=== PATIENT | male | born 2005 | race Caucasian/White ===

== ENCOUNTER 2025-01-22 21:24 | Inpatient (IN) ==
--- NOTE | 2025-01-22 21:44 | Emergency Department Note ---
History of Present Illness General Chief complaint: Seizure Stated complaint: SEIZURE, FALL, HIT HEAD Time Seen by Provider: 01/22/25 21:34 History of Present Illness This is a 19-year-old male presenting to the emergency department for evaluation of a seizure episode. The patient has a history of epilepsy and is not taking his Lamictal. His last seizure was about a month ago. 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 He went minimally responsive according to witnesses, and ultimately fell striking the left side of his head off the ground. Patient was evaluated by EMS and brought to the ER for evaluation. He was postictal. Patient is recovering now that he has arrived to the ER and does not recall the events that occurred prior to his hospital visit. He rates his current discomfort a 5/10 in his head. No pain in his neck, chest, abdomen, or extremities. Home Medications Medication Instructions Recorded Confirmed Type No Known Home Medications 01/23/25 01/23/25 History Allergies Allergy/AdvReac Type Severity Reaction Status Date / Time No Known Allergies Allergy Mild Verified 12/19/24 08:40 Past Med/Surg History Problem List (Updated 01/23/25 @ 06:13 by Enrique Willis PA-C) Cannabis use disorder (Acute) Head injury (Acute) Seizure (Acute) Epilepsy (Acute) ADHD Medical History Alcohol abuse Tetrahydrocannabinol (THC) dependence Tetrahydrocannabinol (THC) use disorder, mild, abuse No significant past medical history Surgical History No significant past surgical history Family History Mother No problems noted. Father No problems noted. Social History Smoking Status: Never smoker Tobacco Type: E-cigarettes / Vaping Second Hand Exposure: No; Do You Dip or Chew Tobacco: No; Tobacco Cessation Education Requested by Patient: No Hx Alcohol Use: Yes Alcohol type: hard liquor Hx Substance Use: No Preferred Language: Barbadian Communication Ability: Effective Visual Impairment: No Limitations Hearing Ability: Normal Audio/Visual Manager Required: No Beliefs That Will Affect Care: None marital status: Single Current Living Situation: Alone Current Living Situation Comment: lives with mom and sister current occupational status: employed and student Other Information That Helps Us Care for You: No Feels Safe at Home: Yes Safety Concerns: Feels Safe At This Time Childhood Exposure to Second-Hand Smoke: No Diet: regular caffeine: Yes Dental Care, Regularly: Yes Physical Activity Frequency: Daily Seatbelt Use: always Sunscreen Use: Yes Assistive Devices: None Review of Systems A total of 10 systems reviewed and were otherwise negative Physical Exam Vital Signs Vital Signs - 24 hr 01/22/25 21:41 01/22/25 21:41 01/22/25 21:42 Temperature 36.8 C Temperature Source Oral Pulse Rate 92 H 93 H Pulse Rate [Apical] Pulse Rate from SpO2 Sensor Pulse Rhythm Regular Pulse Strength Normal Respiratory Rate 20 Respiratory Effort / Characteristics Non-Labored Spontaneous Respiratory Depth Normal Respiratory Pattern Regular Blood Pressure Blood Pressure [Left Arm] Blood Pressure Mean Blood Pressure Mean [Left Arm] Blood Pressure Position [Left Arm] Pulse Oximetry 98 98 Oxygen Delivery Method Room Air Room Air Oxygen Flow Rate Sepsis Recent Fever Within 48 Hours No Sepsis New/Unexplained Change in Mental Status No Sepsis Action Taken by Nursing No Action Required Oxygen Flow Rate - Titration Pulse Oximetry Post Tiitration 01/22/25 21:42 01/22/25 21:43 01/22/25 22:23 Temperature Temperature Source Pulse Rate 92 H Pulse Rate [Apical] Pulse Rate from SpO2 Sensor Pulse Rhythm Pulse Strength Respiratory Rate 12 Respiratory Effort / Characteristics Respiratory Depth Respiratory Pattern Blood Pressure 133/78 149/70 H Blood Pressure [Left Arm] Blood Pressure Mean 96 85 Blood Pressure Mean [Left Arm] Blood Pressure Position [Left Arm] Pulse Oximetry Oxygen Delivery Method Oxygen Flow Rate Sepsis Recent Fever Within 48 Hours Sepsis New/Unexplained Change in Mental Status Sepsis Action Taken by Nursing Oxygen Flow Rate - Titration Pulse Oximetry Post Tiitration 01/22/25 22:30 01/22/25 23:00 01/22/25 23:30 Temperature Temperature Source Pulse Rate 98 H 93 H Pulse Rate [Apical] 97 H Pulse Rate from SpO2 Sensor 95 H Pulse Rhythm Pulse Strength Respiratory Rate 24 23 21 Respiratory Effort / Characteristics Non-Labored Spontaneous Respiratory Depth Respiratory Pattern Regular Blood Pressure 133/77 Blood Pressure [Left Arm] 148/83 H Blood Pressure Mean 92 Blood Pressure Mean [Left Arm] 104 Blood Pressure Position [Left Arm] Lying Pulse Oximetry 90 98 100 Oxygen Delivery Method Room Air Room Air Oxygen Flow Rate Sepsis Recent Fever Within 48 Hours Sepsis New/Unexplained Change in Mental Status Sepsis Action Taken by Nursing Oxygen Flow Rate - Titration Pulse Oximetry Post Tiitration 01/23/25 00:12 01/23/25 00:30 01/23/25 01:00 Temperature Temperature Source Pulse Rate 107 H 86 112 H Pulse Rate [Apical] Pulse Rate from SpO2 Sensor 104 H 86 104 H Pulse Rhythm Pulse Strength Respiratory Rate 18 25 H 20 Respiratory Effort / Characteristics Respiratory Depth Respiratory Pattern Blood Pressure 118/68 125/86 141/88 H Blood Pressure [Left Arm] Blood Pressure Mean 84 99 105 Blood Pressure Mean [Left Arm] Blood Pressure Position [Left Arm] Pulse Oximetry 96 97 90 Oxygen Delivery Method Oxygen Flow Rate Sepsis Recent Fever Within 48 Hours Sepsis New/Unexplained Change in Mental Status Sepsis Action Taken by Nursing Oxygen Flow Rate - Titration Pulse Oximetry Post Tiitration 01/23/25 01:38 01/23/25 02:37 01/23/25 03:12 Temperature Temperature Source Pulse Rate 92 H 103 H Pulse Rate [Apical] Pulse Rate from SpO2 Sensor 103 H Pulse Rhythm Pulse Strength Respiratory Rate 15 Respiratory Effort / Characteristics Respiratory Depth Respiratory Pattern Blood Pressure 121/63 Blood Pressure [Left Arm] Blood Pressure Mean 82 Blood Pressure Mean [Left Arm] Blood Pressure Position [Left Arm] Pulse Oximetry 81 L 94 Oxygen Delivery Method Room Air Nasal Cannula Room Air Oxygen Flow Rate 0 Sepsis Recent Fever Within 48 Hours Sepsis New/Unexplained Change in Mental Status Sepsis Action Taken by Nursing Oxygen Flow Rate - Titration 2 Pulse Oximetry Post Tiitration 95 VITALS: Vitals are noted on the nurse's note and reviewed by myself. Vital signs stable. GENERAL: Well-developed, well-nourished, male, who is in minimally confused but overall cooperative HEAD: There is a roughly 4 cm diameter scalp hematoma along the left posterior scalp EARS: External ear normal. External auditory canals clear, tympanic membranes pearly moreno without erythema or effusion bilaterally. EYES: Pupils equal round and reactive to light and accommodation. Conjunctivae without injection, sclerae without icterus. Extraocular movements intact. NOSE: Patent, turbinates without inflammation or discharge. MOUTH: Mucous membranes moist. Pharynx without erythema, blood, or exudate. Uvula midline. Airway patent. NECK: Supple without nuchal rigidity. No lymphadenopathy. No thyromegaly. Cervical spine is nontender. HEART: Regular rate and rhythm without murmurs gallops or rubs. LUNGS: Clear to auscultation bilaterally without wheezes, rales or rhonchi. No retractions or accessory muscle use. ABDOMEN: Positive normal bowel sounds x 4. Soft, nontender, without masses or organomegaly. No guarding or rebound tenderness. MUSCULOSKELETAL: No muscle atrophy, erythema, or edema noted. Full range of motion in all extremities. No tenderness to palpation. NEURO: Patient was alert and oriented to person place and time. CN II through XII grossly intact. No focal neurological deficits. GCS 15. SKIN: The skin was without rashes, erythema, edema, or bruising. Capillary refill less than 2 seconds. Course Administered Medications Discontinued Medications Sodium Chloride (Nss) 1,000 mls @ 999 mls/hr IV .Q1H1M ONE Stop: 01/22/25 22:40 Last Infusion: 01/23/25 01:26 Dose: Infused Documented By: Admin: 01/22/25 23:12 Dose: 999 mls/hr Documented By: LIDIA Lactated Ringer's (Lr) 1,000 mls @ 999 mls/hr IV .Q1H1M STA Stop: 01/23/25 05:19 Last Admin: 01/23/25 04:46 Dose: 999 mls/hr Documented By: LIDIA Levetiracetam (Levetiracetam 500 Mg/5 Ml Vial) 1,400 mg 20 mg/kg (1400 mg) IV NOW STA Stop: 01/22/25 22:35 Last Admin: 01/22/25 22:39 Dose: 1,400 mg Documented By: mabel Lorazepam (Lorazepam 1 Mg/1 Ml Syr Ed Inj Use) 1 mg IV ONE STA Stop: 01/22/25 21:41 Last Admin: 01/22/25 21:49 Dose: 1 mg Documented By: mabel Lorazepam (Lorazepam 1 Mg/1 Ml Syr Ed Inj Use) 2 mg IV ONE STA Stop: 01/22/25 22:18 Last Admin: 01/22/25 22:37 Dose: 2 mg Documented By: mabel Critical Care Time I have personally spent greater than 30 minutes of critical care time in the direct management of this patient. This includes bedside care, interpretation of diagnostic studies, and testing, discussion with consultants, patient, and family members, and other required patient management activities. This 30 minutes is in excess of all separately billable procedures. Medical Decision Making Differential Diagnosis Differential diagnosis: Etiologies such as vasovagal event, infection, anemia, hypoglycemia, hypovolemia, electrolyte abnormalities, dysrhythmias, cardiac ischemia, cardiac tamponade, valvular heart disease, structural heart disease, seizure, vascular stenosis/dissection, pulmonary embolism, intracerebral event, toxicological process, neurologic event, as well as others were entertained. Laboratory Data 01/22/25 21:37 01/23/25 04:17 Lab Results 01/22/25 01/23/25 Range/Units 21:37 03:13 WBC 17.32 H (4.8-10.8) K/ul RBC 5.30 (4.70-6.10) M/uL Hgb 16.6 (14.0-18.0) g/dL Hct 48.4 (42.0-52.0) % MCV 91.3 (80.0-100.0) fL MCH 31.3 (25.0-34.0) pg MCHC 34.3 (32.0-36.0) g/dL RDW Std Deviation 39.5 (36.4-46.3) fL RDW Coeff of Estrella 11.7 (11.5-14.5) % Plt Count 288 (130-400) K/uL MPV 11.0 (9.4-12.4) fL Immature Gran % (Auto) 2.1 % Neut % (Auto) 67.1 % Lymph % (Auto) 22.0 % [place] % (Auto) 5.8 % Eos % (Auto) 2.3 % Baso % (Auto) 0.7 % Neut # (Auto) 11.62 H (1.40-6.50) K/uL Lymph # (Auto) 3.81 H (1.20-3.40) K/uL [place] # (Auto) 1.01 H (0.11-0.59) K/uL Eos # (Auto) 0.39 (0.00-0.50) K/uL Baso # (Auto) 0.12 (0.00-0.20) K/uL Immature Gran # (Auto) 0.37 H (0.01-0.20) K/uL Sodium 137 (136-145) mmol/L Potassium 3.8 (3.5-5.1) mmol/L Chloride 101 (98-107) mmol/L Carbon Dioxide 11 L (21-32) mmol/L Anion Gap 25 H (3-11) BUN 14 (6-23) mg/dl Creatinine 1.31 (0.6-1.4) mg/dl Est Cr Clr Drug Dosing 83.4 ml/min eGFR 79.42 BUN/Creatinine Ratio 10.7 (10-20) Glucose 162 H (70-99(Fasting)) mg/dl Calcium 9.9 (8.6-10.3) mg/dl Magnesium 2.6 H (1.7-2.4) mg/dl Total Bilirubin 0.4 (0.2-1.0) mg/dl AST 23 (13-39) U/L ALT 18 (7-52) U/L Alkaline Phosphatase 95 (34-104) U/L Total Creatine Kinase 187 (30-223) U/L Total Protein 8.9 H (6.0-8.3) gm/dl Albumin 5.6 H (3.4-5.0) gm/dl Globulin 3.3 (2.5-4.0) gm/dl Albumin/Globulin Ratio 1.7 (0.9-2) Urine Color Yellow Urine Appearance Cloudy A (Clear) Urine pH 5.5 (4.5-7.5) Ur Specific Post 1.011 (1.000-1.030) Urine Protein Trace H (Negative) Urine Glucose (UA) Negative (Negative) Urine Ketones Negative (Negative) Urine Blood Trace H (Negative) Urine Nitrite Negative (Negative) Urine Bilirubin Negative (Negative) Urine Urobilinogen Negative (Negative) Ur Leukocyte Esterase Negative (Negative) Urine WBC (Auto) 0-5 (0-5) /hpf Urine RBC (Auto) 0-2 (0-2) /hpf U Hyaline Cast (Auto) 6-10 H (0-2) /lpf U Epithel Cells (Auto) 0-2 (0-2) /hpf Urine Bacteria (Auto) None Seen (None Seen) Urine Mucus Present A (None Prsent) Urine Comment Urine Opiates Screen Neg (Neg) Ur Methadone, Qual Neg (Neg) Urine Fentanyl Screen Neg (Neg) Urine Barbiturates Neg (Neg) Ur Phencyclidine (PCP) Neg (Neg) U Amphetamin/Meth Scrn Neg (Neg) MDMA (Ecstasy) Screen Neg (Neg) U Benzodiazepines Scrn Neg (Neg) Ur Cocaine Metabolite Neg (Neg) U Marijuana (THC) Screen Pos H (Neg) Ethyl Alcohol mg/dL < 10.0 (<10.0) mg/dl Lyme Disease Screen Negative (Negative) Imaging Data Radiologist's Impression: Head CT 01/22/25 21:41 Exam(s): CT HEAD Without Contrast EXAM: CT Head Without Intravenous Contrast CLINICAL HISTORY: Reason for exam: Seizure, fall, head injury. TECHNIQUE: Axial computed tomography images of the head/brain without intravenous contrast. CTDI is 37.61 mGy and DLP is 1094.1 mGy-cm. Automated exposure control was utilized for the study. A dose lowering technique was utilized adhering to the principles of ALARA. COMPARISON: 11/09/2024 FINDINGS: Brain: Unremarkable. No hemorrhage. No significant white matter disease. No edema. Ventricles: Unremarkable. No ventriculomegaly. Bones/joints: Unremarkable. No acute fracture. Soft tissues: Unremarkable. Sinuses: Unremarkable as visualized. No acute sinusitis. Mastoid air cells: Unremarkable as visualized. No mastoid effusion. IMPRESSION: Head CT negative for acute intracranial abnormality Electronically signed by: Geovany Good MD 01/22/25 23:33 PM [facility] Narrative Physical exam and history were performed. Nursing notes, EMR, and Medication List were personally reviewed. No social concerns were identified as barriers to patients care. History was provided by the Patient and EMS. Ultimately patient's mother did arrive at bedside and did provide additional history. Patient appears to have history of seizures. He seems to have had a spontaneous seizure today. He does have injury to his left side scalp and does seem somewhat postictal. He does not recall all of the events and seems to have some amnesia to what occurred this evening. IV access was established and labs were obtained. Patient was cared for under aspiration and seizure precautions. He was given IV fluids and an initial dose of 1 mg IV Ativan. Patient was sent to CT scan for imaging of his head. Shortly after my initial evaluation, I was asked to return to the room as the patient was actively seizing. On my return to the room patient is having a true seizure. He is quite diaphoretic and nursing is helping him on his side and suctioning his mouth. Patient was given additional 2 mg IV Ativan which did abort the seizure. Case was discussed with my attending. Patient's blood work is as above and was reviewed. He does have an elevated white count of 17,000. He does not have significant anemia or gross electrolyte imbalance. Glucose is 100. Transaminases not diagnostic. CK normal. Urine without evidence of infection. Drug abuse is positive for marijuana. CT of the head was independently reviewed by myself and radiology showing no acute process. Patient's mother did arrive at bedside and was able to provide additional history. Evidently the patient has an upcoming appointment with [facility] on 01/27/2025 for inpatient epilepsy evaluation. According to the patient's mother and by his medication refill history he is not taking any of his chronic meds. Patient was given IV Keppra here in the ER. Patient was reevaluated multiple times and remains asleep and comfortable. I did discuss care options with mother at bedside, escalation of care was considered, and felt to be necessary. Patient case was discussed with the on- call [facility] hospitalist team, who requested that I reach out to the patient's neurologist for further advice of care. I did speak with [facility] neurologist, Dr. Carballo, and recommendation was to continue Keppra. If the patient is able and stable for discharge, they would like him to keep his appointment on 01/27/2025. They would also like to continue this as an outpatient. He does not appear to need acute transfer. Hospitalist team was updated on these recommendations. Please see their dictation for further patient course, plan, and disposition. The chart was completed utilizing [employer] Speech Voice Recognition Software. Grammatical errors, random word insertions, pronoun errors, and incomplete sentences are an occasional consequence of this system due to software limitations, ambient noise, and hardware issues. Any formal questions or concerns about the content, text, or information contained within the body of this dictation should be directly addressed to the provider for clarification. Impression & Plan Seizure, Epilepsy, Head injury, Cannabis use disorder Discharge Plan Visit Data Chief Complaint: Seizure Stated Complaint: SEIZURE, FALL, HIT HEAD ED Provider: Irene Briones ED Midlevel Provider: Enrique Willis Discharge Problem: Seizure, Epilepsy, Head injury, Cannabis use disorder Patient Disposition: Admitted As Inpatient Condition: Fair Discharge Instructions Interventions: ED Discharge Assessment Last Done: 01/23/25 05:09
[2025-01-22] MEDS: LORazepam 1 MG/1 ML SYR ED Inj Use IV STA ×2 (21:49→22:37)
[2025-01-22 21:56] LABS: Hematocrit (blood only) 48.4 % (42.0-52.0); Hemoglobin 16.6 g/dL (14.0-18.0); Immature Granulocytes # (auto) 0.37 K/uL (0.01-0.20); Immature Granulocytes % (auto) 2.1 %; Mean Corpuscular Hemoglobin 31.3 pg (25.0-34.0); Mean Corpuscular Volume 91.3 fL (80.0-100.0); Platelet Count 288 K/uL (130-400); RDW Standard Deviation 39.5 fL (36.4-46.3); Red Blood Count 5.30 M/uL (4.70-6.10); White Blood Count 17.32 K/ul (4.8-10.8)
[2025-01-22 22:05] LABS: Albumin Level 5.6 gm/dl (3.4-5.0); Anion Gap 25.0 (3-11); Bilirubin,Total 0.4 mg/dl (0.2-1.0); Calcium 9.9 mg/dl (8.6-10.3); Carbon Dioxide 11.0 mmol/L (21-32); Chloride 101.0 mmol/L (98-107); Magnesium 2.6 mg/dl (1.7-2.4); Potassium 3.8 mmol/L (3.5-5.1); Sodium 137.0 mmol/L (136-145)
[2025-01-22 22:12] LABS: Alanine Aminotransferase 18.0 U/L (7-52); Albumin Globulin Ratio 1.7 (0.9-2); Alkaline Phosphatase 95.0 U/L (34-104); Blood Urea Nitrogen 14.0 mg/dl (6-23); Creatinine Clr Calc Pharmacy 83.4 ml/min; Globulin 3.3 gm/dl (2.5-4.0); Glucose 162.0 mg/dl (70-99(Fasting)); Total Protein 8.9 gm/dl (6.0-8.3)
[2025-01-22] MEDS ORDERED: LORazepam 1 MG/1 ML SYR ED Inj Use IV PRN (22:23)
[2025-01-22 22:46] LABS: Creatine Kinase 187.0 U/L (30-223)
[2025-01-22] MEDS: SODIUM CHLORIDE 0.9% 1,000 ML IV ONE (23:12)
--- NOTE | 2025-01-22 23:33 | CT Scan Report ---
Exam(s): CT HEAD Without Contrast EXAM: CT Head Without Intravenous Contrast CLINICAL HISTORY: Reason for exam: Seizure, fall, head injury. TECHNIQUE: Axial computed tomography images of the head/brain without intravenous contrast. CTDI is 37.61 mGy and DLP is 1094.1 mGy-cm. Automated exposure control was utilized for the study. A dose lowering technique was utilized adhering to the principles of ALARA. COMPARISON: 11/09/2024 FINDINGS: Brain: Unremarkable. No hemorrhage. No significant white matter disease. No edema. Ventricles: Unremarkable. No ventriculomegaly. Bones/joints: Unremarkable. No acute fracture. Soft tissues: Unremarkable. Sinuses: Unremarkable as visualized. No acute sinusitis. Mastoid air cells: Unremarkable as visualized. No mastoid effusion. IMPRESSION: Head CT negative for acute intracranial abnormality Electronically signed by: Geovany Good MD 01/22/25 23:33 PM
--- NOTE | 2025-01-23 03:36 | History & Physical Report ---
Date of Service January 23, 2025 Assessment & Plan (1) Seizure: Plan 19-year-old male PMHx ADHD, alcohol abuse, THC dependence, and epilepsy presenting for seizure the day of arrival. Evaluation of this leukocytosis 17.32, anion gap 25. His CK is normal, alcohol negative, Lyme negative. Head CT negative. Admission for seizures. #Seizure H/o seizures, epileptic in nature as identified during [facility] admission 10/2024. EEG at that time generalized epileptiform pattern. Has f/u appointment at epilepsy center in [place] 01/27/2025. Was to be on lamotrigine, has not been taking as he is not compliant with medications. Received levetiracetam in ED. Admission for seizures. - CBC leukocytosis 17.32; CMP anion gap 25; CK 187; lactate, VBG pending - BMP q4hr (specific attention AG) - UDS pending, ETOH negative - CT head no acute findings - Seizure, fall precautions - IVF LR 1L bolus then @ 125 mL/hr - Levetiracetam 500 mg BID - start - Lorazepam IV for active seizures - MRI brain pending - EEG pending - Neuro consulted - appreciate input + recs #ADHD- No active medications for such #THC Dependence- Pending UDS #H/o alcohol abuse- Alcohol negative Dispo: Admit, PCU VTE prophylaxis: SCDs This document was dictated utilizing [employer]. Please excuse any grammatical errors that may be secondary to use of this software. Admission and Anticipated Discharge Date Admission Date: 01/23/2025 History of Present Illness Chief Complaint: Seizure Primary Care Provider: ADAM Subramanian 19-year-old male PMHx ADHD, alcohol abuse, THC dependence, and epilepsy presenting for seizure the day of arrival. Mother provides the history as patient is sleeping and does not verbally communicate with me during the interaction. Mother states that the pt had a seizure while at work the night of arrival. Reports that pt was dx with epilepsy in October of 2024 after similar episode. He had been prescribed anti-epileptic medications at that time, but by week 3 felt that the meds were making him sick and he was waking up with night sweats so he discontinued the medications on his own. This was the first seizure since doing so. Mother states that the pt does smoke marijuana every week, reports that the last time he smoked was ~ 2 days ago which she did ask him while he was awake in the ED. She is unsure of his drinking habits, does not believe that he is drinking at all, and does not believe that the patient partakes in other recreational drugs. He is sleeping during exam, does not wake to answer my questions. He did wake for his mother briefly and knew that he was at the hospital for a seizure, then he fell back asleep. History is limited. ED evaluation reveals CBC with leukocytosis 17.32, stable H&H; CMP CO2 11, AG 25, glucose 162, protein 8.9, albumin 5.6; magnesium 2.6, calcium 9.9; total CK1 87; alcohol negative; Lyme negative; head CT negative.; Provided with 1L NSS, lorazepam 2 mg IV x 2, and levetiracetam 1400 mg IV in ED. Please see Dr. Castle attestation for adjustments/additions to treatment plan. Allergies Allergy/AdvReac Type Severity Reaction Status Date / Time No Known Allergies Allergy Mild Verified 12/19/24 08:40 Home Medications Medication Instructions Recorded Confirmed Type No Known Home Medications 01/23/25 01/23/25 History Past Med/Surg History Problem List (Updated 01/23/25 @ 06:13 by Enrique Willis PA-C) Cannabis use disorder (Acute) Head injury (Acute) Seizure (Acute) Epilepsy (Acute) ADHD Medical History Alcohol abuse Tetrahydrocannabinol (THC) dependence Tetrahydrocannabinol (THC) use disorder, mild, abuse No significant past medical history Surgical History No significant past surgical history Family History Mother No problems noted. Father No problems noted. Social History Smoking Status: Never smoker Tobacco Type: E-cigarettes / Vaping Second Hand Exposure: No; Do You Dip or Chew Tobacco: No; Tobacco Cessation Education Requested by Patient: No Hx Alcohol Use: Yes Alcohol type: hard liquor Hx Substance Use: No Preferred Language: Kiswahili Communication Ability: Effective Visual Impairment: No Limitations Hearing Ability: Normal Manager Of Program Required: No Beliefs That Will Affect Care: None marital status: Single Current Living Situation: Alone Current Living Situation Comment: lives with mom and sister current occupational status: employed and student Other Information That Helps Us Care for You: No Feels Safe at Home: Yes Safety Concerns: Feels Safe At This Time Childhood Exposure to Second-Hand Smoke: No Diet: regular caffeine: Yes Dental Care, Regularly: Yes Physical Activity Frequency: Daily Seatbelt Use: always Sunscreen Use: Yes Assistive Devices: None Review of Systems Review of Systems: All systems reviewed & are unremarkable except as noted in Subjective Physical Exam Physical Exam: General: No acute distress Skin: Warm and dry, abrasions L side face Head: Normocephalic, atraumatic Eyes: PERRL, conjunctivae clear, sclera non-icteric ENT: External ear and ear canal without swelling; nose atraumatic; good dentition, tongue normal appearance, pharynx normal Neck: Supple, no LAD Cardio: RRR, no M/G/R, S1 and S2 normal Resp: No respiratory distress, Lungs CTA in all lobes bilaterally, no wheezes, rales, or rhonchi Abdomen: Soft, symmetric, nontender; No masses or hepatosplenomegaly; Bowel sounds normoactive MSK: No deformities; pulses palpable and equal; no edema. Neuro: Sensation intact bilaterally - moves my stethoscope off his chest and turns over in bed Psych: Awake to touch, opens eyes, goes back to sleep. Mother present in room at time of visit. Results & Data Results & Data Vital Signs (Past 12 Hours) Vital Signs Temp Pulse Pulse Resp BP BP Pulse Ox 01/23/25 03:12 103 H 15 121/63 94 01/23/25 02:37 81 L 01/23/25 01:38 92 H 01/23/25 01:00 112 H 20 141/88 H 90 01/23/25 00:30 86 25 H 125/86 97 01/23/25 00:12 107 H 18 118/68 96 01/22/25 23:30 93 H 21 133/77 100 01/22/25 23:00 97 H 23 148/83 H 98 01/22/25 22:30 98 H 24 90 01/22/25 22:23 149/70 H 01/22/25 21:43 133/78 01/22/25 21:42 92 H 12 01/22/25 21:42 93 H 01/22/25 21:41 98 01/22/25 21:41 36.8 C 92 H 20 98 O2 Del Method O2 Flow Rate 01/23/25 03:12 Room Air 01/23/25 02:37 Room Air, Nasal Cannula 0 01/23/25 01:38 01/23/25 01:00 01/23/25 00:30 01/23/25 00:12 01/22/25 23:30 Room Air 01/22/25 23:00 Room Air 01/22/25 22:30 01/22/25 22:23 01/22/25 21:43 01/22/25 21:42 01/22/25 21:42 01/22/25 21:41 Room Air 01/22/25 21:41 Room Air Laboratory Results 01/22/25 21:37 WBC 17.32 H RBC 5.30 Hgb 16.6 Hct 48.4 MCV 91.3 MCH 31.3 MCHC 34.3 RDW Std Deviation 39.5 RDW Coeff of Estrella 11.7 Plt Count 288 MPV 11.0 Immature Gran % (Auto) 2.1 Neut % (Auto) 67.1 Lymph % (Auto) 22.0 [place] % (Auto) 5.8 Eos % (Auto) 2.3 Baso % (Auto) 0.7 Neut # (Auto) 11.62 H Lymph # (Auto) 3.81 H [place] # (Auto) 1.01 H Eos # (Auto) 0.39 Baso # (Auto) 0.12 Immature Gran # (Auto) 0.37 H Sodium 137 Potassium 3.8 Chloride 101 Carbon Dioxide 11 L Anion Gap 25 H BUN 14 Creatinine 1.31 Est Cr Clr Drug Dosing 83.4 eGFR 79.42 BUN/Creatinine Ratio 10.7 Glucose 162 H Calcium 9.9 Magnesium 2.6 H Total Bilirubin 0.4 AST 23 ALT 18 Alkaline Phosphatase 95 Total Creatine Kinase 187 Total Protein 8.9 H Albumin 5.6 H Globulin 3.3 Albumin/Globulin Ratio 1.7 Ethyl Alcohol mg/dL < 10.0 Lyme Disease Screen Negative Diagnostic Findings Head CT 01/22/25 21:41 Exam(s): CT HEAD Without Contrast EXAM: CT Head Without Intravenous Contrast CLINICAL HISTORY: Reason for exam: Seizure, fall, head injury. TECHNIQUE: Axial computed tomography images of the head/brain without intravenous contrast. CTDI is 37.61 mGy and DLP is 1094.1 mGy-cm. Automated exposure control was utilized for the study. A dose lowering technique was utilized adhering to the principles of ALARA. COMPARISON: 11/09/2024 FINDINGS: Brain: Unremarkable. No hemorrhage. No significant white matter disease. No edema. Ventricles: Unremarkable. No ventriculomegaly. Bones/joints: Unremarkable. No acute fracture. Soft tissues: Unremarkable. Sinuses: Unremarkable as visualized. No acute sinusitis. Mastoid air cells: Unremarkable as visualized. No mastoid effusion. IMPRESSION: Head CT negative for acute intracranial abnormality Electronically signed by: Geovany Good MD 01/22/25 23:33 PM Medications Administered 1L NSS Lorazepam 2 mg IV Levetiracetam 1400 mg IV Code Status & VTE Plan Code Status Full Supervising Physician Co-Signing Physician Notes Attending addendum: I have physically seen this patient, have supervised the TRACIE's activities, and agree with the H&P unless as otherwise noted. Assessment and Plan: The patient is a 19-year-old male with past medical history including ADHD, alcohol abuse, THC dependence, and epilepsy. He presents to the emergency department with complaint of several seizures that occurred on the day of arrival. Initial evaluation in the emergency department with the following abnormal laboratories: WBC 17.32, hemoglobin 16.6, hematocrit 40.4, glucose 162, creatinine 1.31, anion gap 25. Patient did have 1 seizure while in the emergency department. From the ED he received the following: Lorazepam 1 mg IV, normal saline 1 L bolus, lorazepam 2 mg IV, Keppra [address] scan head without contrast was negative. He was then referred for evaluation [facility]. Seizure disorder- He had a thorough evaluation at [facility] in [place] during admission of 11/07. EEG at that time revealed generalized epileptiform pattern. He has a appointment at the epilepsy center at [place] on 01/27/2025 to establish care there. From [facility] he was prescribed a gradually increasing dosing of lamotrigine, of which he has not been taking and is not compliant with medications. CT head this evening with no acute findings Seizure and fall precautions LR at 125 mL/h Received Keppra 1400 mg IV loading dose in the ED Continue Keppra at 500 mg twice daily Lorazepam IV as needed seizures Order MRI brain Order EEG Consult neurology THC dependence- Urine drug screen negative except for marijuana Counseling History of alcohol abuse- Alcohol level negative ADHD- On no medications PG Care Time/CCT Total # of Minutes Spent Total Time Spent with Patient: Total time spent is greater than 50% in coordination of care (as documented) at patient's floor/unit and/or counseling patient: Coding Level of Care Code 73851 INT INP/OBS CARE MIN Diagnoses Seizure R56.9
[2025-01-23 04:06] LABS: Appearance Urine Cloudy (Clear); Bacteria Urine Automated None Seen (None Seen); Epithelial Cell Urine Auto 0-2 /hpf (0-2); Glucose Urine UA Negative (Negative); RBC Urine Automated 0-2 /hpf (0-2); WBC Urine Automated 0-5 /hpf (0-5)
[2025-01-23 04:20] LABS: Amphetamines+Metham, Urine Neg (Neg); MDMA (Ecstacy), Urine Neg (Neg); Marijuana, Urine Pos (Neg)
[2025-01-23 04:42] LABS: Base Excess VBG -3.6 mEq/L; HCO3 VBG 22 mmol/L; Oxygen Saturation VBG 89.7 %; PCO2 VBG 38 mmHg (38-50); PO2 VBG 57 mmHg; pH VBG 7.36 (7.36-7.41)
[2025-01-23] MEDS: LACTATED RINGER'S 1,000 ML IV STA (04:46)
[2025-01-23 05:03] LABS: Alanine Aminotransferase 14.0 U/L (7-52); Albumin Globulin Ratio 1.5 (0.9-2); Albumin Level 4.4 gm/dl (3.4-5.0); Alkaline Phosphatase 77.0 U/L (34-104); Anion Gap 10.0 (3-11); Bilirubin,Total 0.5 mg/dl (0.2-1.0); Blood Urea Nitrogen 15.0 mg/dl (6-23); Calcium 9.4 mg/dl (8.6-10.3); Carbon Dioxide 20.0 mmol/L (21-32); Chloride 108.0 mmol/L (98-107); Creatinine Clr Calc Pharmacy 80.9 ml/min; Globulin 2.9 gm/dl (2.5-4.0); Glucose 100.0 mg/dl (70-99(Fasting)); Potassium 3.9 mmol/L (3.5-5.1); Sodium 138.0 mmol/L (136-145); Total Protein 7.3 gm/dl (6.0-8.3)
[2025-01-23] MEDS ORDERED: POLYETHYLENE (MIRALAX) 17 GM PACK PO PRN (05:35)
[2025-01-23] MEDS ORDERED: ONDANSETRON INJ 2 MG/ML 2 ML VIAL IV PRN (05:35)
[2025-01-23] MEDS ORDERED: LORazepam Inj 2 MG in SYRINGE 1 ML IV PRN (05:40)
[2025-01-23] MEDS: LACTATED RINGER'S 1,000 ML IV SCH (06:04)
[2025-01-23 08:49] LABS: Anion Gap 7.0 (3-11); Blood Urea Nitrogen 16.0 mg/dl (6-23); Calcium 9.5 mg/dl (8.6-10.3); Carbon Dioxide 25.0 mmol/L (21-32); Chloride 107.0 mmol/L (98-107); Creatinine Clr Calc Pharmacy 70.0 ml/min; Glucose 89.0 mg/dl (70-99(Fasting)); Potassium 4.1 mmol/L (3.5-5.1); Sodium 139.0 mmol/L (136-145)
[2025-01-23] MEDS: levETIRAcetam 500 MG TAB PO SCH (09:13)
[2025-01-23] MEDS: GADOBUTROL 65ML VIAL IV ONE (11:55)
--- NOTE | 2025-01-23 12:25 | Magnetic Resonance Report ---
MRI OF THE BRAIN COMBO CLINICAL HISTORY: Seizure. Recent fall. COMPARISON STUDY: CT of the brain dated 01/22/2025 TECHNIQUE: MRI of the brain was performed utilizing various T1 and T2-weighted sequences in the axial , sagittal, and coronal planes. Contrast-enhanced sequences were acquired following the administratio n of 8 cc of Gadavist. FINDINGS: Brain parenchyma: A subcentimeter focus of T2 signal abnormality within the left frontal periventricu lar white matter seen on coronal FLAIR image #8 is of doubtful significance as an isolated finding.. There is no hemorrhage or mass effect. There is no restricted diffusion to suggest acute ischemia. No enhancing mass lesion is identified on the postcontrast images. Au-white matter differentiation is preserved. No extra-axial fluid collection is seen. The cerebellar tonsils are normal in configurati on. The hippocampi are normal and symmetric. Ventricles, sulci, and cisterns: Normal in configuration. Pituitary and sella: Unremarkable. Intracranial vasculature: Normal flow voids are maintained at the skull base. Orbits: The bony orbits are grossly intact. Orbital contents are normal in appearance. Sinuses and mastoids: There is mild mucosal thickening within the left frontal sinus, the left ethmoi d sinuses, and the left maxillary antrum. The mastoid air cells are clear. Calvarium: Unremarkable. Cervical cord: Partially visualized cervical spinal cord is normal in morphology and signal intensity . IMPRESSION: No acute intracranial abnormality. ACT 112: Negative or not required by law. Electronically signed by: Lalito Rodgers M.D. 01/23/2025 12:23 PM
--- NOTE | 2025-01-23 14:23 | Hospitalist Progress Note ---
Date of Service January 23, 2025 Assessment & Plan (1) Seizure: Plan 19-year-old male PMHx ADHD, alcohol abuse, THC dependence, and epilepsy presenting for seizure the day of arrival. Evaluation of this leukocytosis 17.32, anion gap 25. His CK is normal, alcohol negative, Lyme negative. Head CT negative. Admission for seizures. #Seizure H/o seizures, epileptic in nature as identified during [facility] admission 10/2024. EEG at that time generalized epileptiform pattern. Has f/u appointment at epilepsy center in [place] 01/27/2025. Was to be on lamotrigine, has not been taking as he is not compliant with medications. Received levetiracetam in ED. Admission for seizures. - CBC leukocytosis 17.32; CMP anion gap 25; CK 187; lactate, VBG pending - BMP q4hr (specific attention AG) - UDS pending, ETOH negative - CT head no acute findings - Seizure, fall precautions - IVF LR 1L bolus then @ 125 mL/hr - Case reviewed with Dr. Gallo of neurology at [place]. Will increase the Keppra to 750 twice daily. Continue to monitor closely. If we can maintain good control. He awakens and returns to baseline, the best course of approach would be to discharge to follow-up for outpatient EMU evaluation, as scheduled on Monday. #ADHD- No active medications for such #THC Dependence- Pending UDS #H/o alcohol abuse- Alcohol negative Dispo: Admit, PCU VTE prophylaxis: SCDs This document was dictated utilizing [employer]. Please excuse any grammatical errors that may be secondary to use of this software. Admission and Anticipated Discharge Date Admission Date: January 23, 2025 Subjective Still somnolent. History comes from the mom who has been in the room with the patient throughout the day. She goes on to report that he was not taking the Lamictal medication. He thought it was toxic. Does endorse to THC use does not aware of any other substances. She does report that he was set up for an EMU evaluation at [facility] on 01/27. Otherwise this is his second seizure. He had a new onset generalized tonic-clonic seizure in October this year was transferred to [place]. Workup through [facility] neurology he was started on Lamictal. But he refused to take that medication. He did not think he was going to have another seizure according to her and he thought the medicines were toxic and he wanted to avoid them. Otherwise she is not aware of any direct recent other events or symptoms. Physical Exam Physical Exam: General: No acute distress Skin: Warm and dry, abrasions L side face Head: Normocephalic, atraumatic Eyes: PERRL, conjunctivae clear, sclera non-icteric ENT: External ear and ear canal without swelling; nose atraumatic; good dentition, tongue normal appearance, pharynx normal Neck: Supple, no LAD Cardio: RRR, no M/G/R, S1 and S2 normal Resp: No respiratory distress, Lungs CTA in all lobes bilaterally, no wheezes, rales, or rhonchi Abdomen: Soft, symmetric, nontender; No masses or hepatosplenomegaly; Bowel sounds normoactive MSK: No deformities; pulses palpable and equal; no edema. Neuro: GCS [id number], moves all extremities, no cogwheeling or rigidity, no seizure like movements, PERRL Mother present in room at time of visit. Results & Data Results & Data Vital Signs (Past 12 Hours) Vital Signs Temp Pulse Pulse Pulse Resp BP BP 01/23/25 12:09 36.7 C 75 18 138/76 01/23/25 08:27 36.8 C 82 14 118/69 01/23/25 07:03 77 01/23/25 05:35 36.8 C 84 16 125/68 01/23/25 05:09 89 16 01/23/25 03:12 103 H 15 121/63 01/23/25 02:37 Pulse Ox O2 Del Method O2 Flow Rate 01/23/25 12:09 98 Room Air 01/23/25 08:27 97 Room Air 01/23/25 07:03 01/23/25 05:35 96 Room Air 01/23/25 05:09 91 Room Air 01/23/25 03:12 94 Room Air 01/23/25 02:37 81 L Room Air, Nasal Cannula 0 Laboratory Results 01/23/25 01/23/25 01/23/25 08:05 04:17 03:13 WBC RBC Hgb Hct MCV MCH MCHC RDW Std Deviation RDW Coeff of Estrella Plt Count MPV Immature Gran % (Auto) Neut % (Auto) Lymph % (Auto) Carter % (Auto) Eos % (Auto) Baso % (Auto) Neut # (Auto) Lymph # (Auto) Carter # (Auto) Eos # (Auto) Baso # (Auto) Immature Gran # (Auto) VBG pH 7.36 VBG pCO2 38 VBG pO2 57 VBG HCO3 22 VBG O2 Saturation 89.7 VBG Base Excess -3.6 Sodium 139 138 Potassium 4.1 3.9 Chloride 107 108 H Carbon Dioxide 25 20 L Anion Gap 7 10 BUN 16 15 Creatinine 1.56 H 1.35 Est Cr Clr Drug Dosing 70.0 80.9 eGFR 64.40 76.60 BUN/Creatinine Ratio 10.3 11.1 Glucose 89 100 H Lactate 0.7 Calcium 9.5 9.4 Magnesium Total Bilirubin 0.5 AST 24 ALT 14 Alkaline Phosphatase 77 Total Creatine Kinase Total Protein 7.3 Albumin 4.4 Globulin 2.9 Albumin/Globulin Ratio 1.5 Urine Color Yellow Urine Appearance Cloudy A Urine pH 5.5 Ur Specific [place] 1.011 Urine Protein Trace H Urine Glucose (UA) Negative Urine Ketones Negative Urine Blood Trace H Urine Nitrite Negative Urine Bilirubin Negative Urine Urobilinogen Negative Ur Leukocyte Esterase Negative Urine WBC (Auto) 0-5 Urine RBC (Auto) 0-2 U Hyaline Cast (Auto) 6-10 H U Epithel Cells (Auto) 0-2 Urine Bacteria (Auto) None Seen Urine Mucus Present A Urine Comment Urine Opiates Screen Neg Ur Methadone, Qual Neg Urine Fentanyl Screen Neg Urine Barbiturates Neg Ur Phencyclidine (PCP) Neg U Amphetamin/Meth Scrn Neg MDMA (Ecstasy) Screen Neg U Benzodiazepines Scrn Neg Ur Cocaine Metabolite Neg U Marijuana (THC) Screen Pos H Ethyl Alcohol mg/dL Lyme Disease Screen 01/22/25 21:37 WBC 17.32 H RBC 5.30 Hgb 16.6 Hct 48.4 MCV 91.3 MCH 31.3 MCHC 34.3 RDW Std Deviation 39.5 RDW Coeff of Estrella 11.7 Plt Count 288 MPV 11.0 Immature Gran % (Auto) 2.1 Neut % (Auto) 67.1 Lymph % (Auto) 22.0 [place] % (Auto) 5.8 Eos % (Auto) 2.3 Baso % (Auto) 0.7 Neut # (Auto) 11.62 H Lymph # (Auto) 3.81 H Carter # (Auto) 1.01 H Eos # (Auto) 0.39 Baso # (Auto) 0.12 Immature Gran # (Auto) 0.37 H VBG pH VBG pCO2 VBG pO2 VBG HCO3 VBG O2 Saturation VBG Base Excess Sodium 137 Potassium 3.8 Chloride 101 Carbon Dioxide 11 L Anion Gap 25 H BUN 14 Creatinine 1.31 Est Cr Clr Drug Dosing 83.4 eGFR 79.42 BUN/Creatinine Ratio 10.7 Glucose 162 H Lactate Calcium 9.9 Magnesium 2.6 H Total Bilirubin 0.4 AST 23 ALT 18 Alkaline Phosphatase 95 Total Creatine Kinase 187 Total Protein 8.9 H Albumin 5.6 H Globulin 3.3 Albumin/Globulin Ratio 1.7 Urine Color Urine Appearance Urine pH Ur Specific [place] Urine Protein Urine Glucose (UA) Urine Ketones Urine Blood Urine Nitrite Urine Bilirubin Urine Urobilinogen Ur Leukocyte Esterase Urine WBC (Auto) Urine RBC (Auto) U Hyaline Cast (Auto) U Epithel Cells (Auto) Urine Bacteria (Auto) Urine Mucus Urine Comment Urine Opiates Screen Ur Methadone, Qual Urine Fentanyl Screen Urine Barbiturates Ur Phencyclidine (PCP) U Amphetamin/Meth Scrn MDMA (Ecstasy) Screen U Benzodiazepines Scrn Ur Cocaine Metabolite U Marijuana (THC) Screen Ethyl Alcohol mg/dL < 10.0 Lyme Disease Screen Negative Diagnostic Findings Brain MRI 01/23/25 05:35 MRI OF THE BRAIN COMBO CLINICAL HISTORY: Seizure. Recent fall. COMPARISON STUDY: CT of the brain dated 01/22/2025 TECHNIQUE: MRI of the brain was performed utilizing various T1 and T2-weighted sequences in the axial, sagittal, and coronal planes. Contrast-enhanced sequences were acquired following the administration of 8 cc of Gadavist. FINDINGS: Brain parenchyma: A subcentimeter focus of T2 signal abnormality within the left frontal periventricular white matter seen on coronal FLAIR image #8 is of doubtful significance as an isolated finding.. There is no hemorrhage or mass effect. There is no restricted diffusion to suggest acute ischemia. No enhancing mass lesion is identified on the postcontrast images. Au-white matter differentiation is preserved. No extra-axial fluid collection is seen. The cerebellar tonsils are normal in configuration. The hippocampi are normal and symmetric. Ventricles, sulci, and cisterns: Normal in configuration. Pituitary and sella: Unremarkable. Intracranial vasculature: Normal flow voids are maintained at the skull base. Orbits: The bony orbits are grossly intact. Orbital contents are normal in appearance. Sinuses and mastoids: There is mild mucosal thickening within the left frontal sinus, the left ethmoid sinuses, and the left maxillary antrum. The mastoid air cells are clear. Calvarium: Unremarkable. Cervical cord: Partially visualized cervical spinal cord is normal in morphology and signal intensity. IMPRESSION: No acute intracranial abnormality. ACT 112: Negative or not required by law. Electronically signed by: Lalito Rodgers M.D. 01/23/2025 12:23 PM PG Care Time/CCT Total # of Minutes Spent Total Time Spent with Patient: Total time spent is greater than 50% in coordination of care (as documented) at patient's floor/unit and/or counseling patient: Coding Level of Care Code 77450 SUB INP/OBS CARE 2/35MIN Diagnoses Seizure R56.9
[2025-01-23 15:30] LABS: Anion Gap 9.0 (3-11); Blood Urea Nitrogen 16.0 mg/dl (6-23); Calcium 9.6 mg/dl (8.6-10.3); Carbon Dioxide 24.0 mmol/L (21-32); Chloride 105.0 mmol/L (98-107); Creatinine Clr Calc Pharmacy 66.6 ml/min; Glucose 103.0 mg/dl (70-99(Fasting)); Potassium 3.7 mmol/L (3.5-5.1); Sodium 138.0 mmol/L (136-145)
--- NOTE | 2025-01-23 16:22 | Electroencephalogram ---
EEG Procedure Note Date of Service January 23, 2025 Start / End Times Start Time: 6:06 AM End Time: 6:26 AM Referring Physician Michael History Epilepsy Home Medication List Medication Instructions Recorded Confirmed Type No Known Home Medications 01/23/25 01/23/25 History Inpatient Medication List Lactated Ringer's (Lr) 1,000 mls @ 125 mls/hr IV .Q8H KAREN Stop: 01/26/25 05:29 Last Admin: 01/23/25 15:33 Dose: 125 mls/hr Documented By: Infusion: 01/23/25 15:33 Dose: Infused Documented By: Infusion: 01/23/25 14:22 Dose: 125 mls/hr Documented By: Admin: 01/23/25 06:04 Dose: 125 mls/hr Documented By: TONY Discontinued Medications Gadobutrol (Gadobutrol 65ml Vial) 8 ml IV ONCE ONE Stop: 01/23/25 11:56 Last Admin: 01/23/25 11:55 Dose: 8 ml Documented By: HERNAN Sodium Chloride (Nss) 1,000 mls @ 999 mls/hr IV .Q1H1M ONE Stop: 01/22/25 22:40 Last Infusion: 01/23/25 01:26 Dose: Infused Documented By: Admin: 01/22/25 23:12 Dose: 999 mls/hr Documented By: LIDIA Lactated Ringer's (Lr) 1,000 mls @ 999 mls/hr IV .Q1H1M STA Stop: 01/23/25 05:19 Last Infusion: 01/23/25 06:14 Dose: Infused Documented By: Admin: 01/23/25 04:46 Dose: 999 mls/hr Documented By: LIDIA Levetiracetam (Levetiracetam 500 Mg/5 Ml Vial) 1,400 mg 20 mg/kg (1400 mg) IV NOW STA Stop: 01/22/25 22:35 Last Admin: 01/22/25 22:39 Dose: 1,400 mg Documented By: mabel Levetiracetam (Levetiracetam 500 Mg Tab) 500 mg PO BID KAREN Stop: 02/22/25 08:59 Last Admin: 01/23/25 09:13 Dose: 500 mg Documented By: VIRGIL Lorazepam (Lorazepam 1 Mg/1 Ml Syr Ed Inj Use) 1 mg IV ONE STA Stop: 01/22/25 21:41 Last Admin: 01/22/25 21:49 Dose: 1 mg Documented By: mabel Lorazepam (Lorazepam 1 Mg/1 Ml Syr Ed Inj Use) 2 mg IV ONE STA Stop: 01/22/25 22:18 Last Admin: 01/22/25 22:37 Dose: 2 mg Documented By: mabel Description This is a 21 electrode EEG with a single channel dedicated to limited EKG. The electrodes were placed in accordance with the International 10-20 system. There is a posterior dominant rhythm of about 10 Hz which is symmetrically distributed and attenuates with eye opening. There is a normal anterior to posterior organization. Photic stimulation is unremarkable. Hyperventilation is not performed. There is an intermittent generalized spike and slow wave focus seen maximally over the left frontal region. There is intermittent paroxysmal fast activity. Interpretation Abnormal awake/drowsy EEG with findings potentially consistent with an underlying primary generalized seizure disorder. [facility] EEG Procedure Codes Indication for Procedure (1) Epilepsy: Neurology Neurology: 82120 EEG include record awake & drowsy
[2025-01-23 18:53] LABS: Anion Gap 8.0 (3-11); Blood Urea Nitrogen 15.0 mg/dl (6-23); Calcium 9.7 mg/dl (8.6-10.3); Carbon Dioxide 24.0 mmol/L (21-32); Chloride 107.0 mmol/L (98-107); Creatinine Clr Calc Pharmacy 71.9 ml/min; Glucose 82.0 mg/dl (70-99(Fasting)); Potassium 4.1 mmol/L (3.5-5.1); Sodium 139.0 mmol/L (136-145)
[2025-01-23] MEDS: levETIRAcetam 250 MG TAB PO SCH (21:23)
[2025-01-24 06:49] LABS: Alanine Aminotransferase 12.0 U/L (7-52); Albumin Globulin Ratio 1.9 (0.9-2); Albumin Level 4.3 gm/dl (3.4-5.0); Alkaline Phosphatase 64.0 U/L (34-104); Anion Gap 9.0 (3-11); Bilirubin,Total 0.9 mg/dl (0.2-1.0); Blood Urea Nitrogen 12.0 mg/dl (6-23); Calcium 9.3 mg/dl (8.6-10.3); Carbon Dioxide 24.0 mmol/L (21-32); Chloride 106.0 mmol/L (98-107); Creatinine Clr Calc Pharmacy 82.8 ml/min; Globulin 2.3 gm/dl (2.5-4.0); Glucose 84.0 mg/dl (70-99(Fasting)); Magnesium 1.9 mg/dl (1.7-2.4); Potassium 3.3 mmol/L (3.5-5.1); Sodium 139.0 mmol/L (136-145); Total Protein 6.6 gm/dl (6.0-8.3)
[2025-01-24 06:54] LABS: Hematocrit (blood only) 37.9 % (42.0-52.0); Hemoglobin 13.5 g/dL (14.0-18.0); Immature Granulocytes # (auto) 0.02 K/uL (0.01-0.20); Immature Granulocytes % (auto) 0.2 %; Mean Corpuscular Hemoglobin 30.8 pg (25.0-34.0); Mean Corpuscular Volume 86.5 fL (80.0-100.0); Platelet Count 223 K/uL (130-400); RDW Standard Deviation 37.0 fL (36.4-46.3); Red Blood Count 4.38 M/uL (4.70-6.10); White Blood Count 8.25 K/ul (4.8-10.8)
[2025-01-24 07:15] VITALS: BP 103/58; RESP 18; TEMP 98.2; O2SAT 97
--- NOTE | 2025-01-24 10:08 | Electrocardiogram Report ---
Test Reason : Blood Pressure : */* mmHG Vent. Rate : 88 BPM Atrial Rate : 88 BPM P-R Int : 152 ms QRS Dur : 92 ms QT Int : 374 ms P-R-T Axes : 63 73 46 degrees QTcB Int : 452 ms Normal sinus rhythm Normal ECG When compared with ECG of 30-Sep-2021 15:46, No significant change Confirmed by Frankie Roblero ([id number]) on 01/24/2025 10:07:39 AM Referred By: REFERRED SELF Confirmed By: Frankie Roblero
--- NOTE | 2025-01-24 12:11 | Discharge Summary ---
Discharge Summary Date of Service January 24, 2025 Principal Dx & Hospital Course #1 = Principal Diagnosis (1) Seizure: Plan 19-year-old male PMHx ADHD, alcohol abuse, THC dependence, and epilepsy presenting for seizure the day of arrival. Evaluation of this leukocytosis 17.32, anion gap 25. His CK is normal, alcohol negative, Lyme negative. Head CT negative. Admission for seizures. #Seizure H/o seizures, epileptic in nature as identified during [facility] admission 10/2024. EEG at that time generalized epileptiform pattern. Has f/u appointment at epilepsy center in [place] 01/27/2025. Mom had called and arranged second oppinion and EMU evaluation at [place] prior to this event. He was to be on lamotrigine, has not been taking as he is not compliant with medications. Received levetiracetam in ED. Admission for seizures. No additional events after admission, started with Keppra loading dose, DC on 750mg twice daily under the guidance of neurolgy from [facility].No recurrent seizure activity. EEG was completed and did not show some residual epileptiform activity. See full report. Mom present throughout admission. He agrees to stay with her until Neurology follow-up is complete. Discussed no driving, operating machinery. Advised to restrain from long periods being along for the near term. 5 day EMU admission in [place] to pending 01/27/25 #ADHD- No active medications for such #THC Dependence- Pending UDS, advised abstinence #H/o alcohol abuse- Alcohol negative Admission HPI Per Admitting Provider 19-year-old male PMHx ADHD, alcohol abuse, THC dependence, and epilepsy presenting for seizure the day of arrival. Mother provides the history as patient is sleeping and does not verbally communicate with me during the interaction. Mother states that the pt had a seizure while at work the night of arrival. Reports that pt was dx with epilepsy in October of 2024 after similar episode. He had been prescribed anti-epileptic medications at that time, but by week 3 felt that the meds were making him sick and he was waking up with night sweats so he discontinued the medications on his own. This was the first seizure since doing so. Mother states that the pt does smoke marijuana every week, repo rts that the last time he smoked was ~ 2 days ago which she did ask him while he was awake in the ED. She is unsure of his drinking habits, does not believe that he is drinking at all, and does not believe that the patient partakes in other recreational drugs. He is sleeping during exam, does not wake to answer my questions. He did wake for his mother briefly and knew that he was at the hospital for a seizure, then he fell back asleep. History is limited. ED evaluation reveals CBC with leukocytosis 17.32, stable H&H; CMP CO2 11, AG 25, glucose 162, protein 8.9, albumin 5.6; magnesium 2.6, calcium 9.9; total CK1 87; alcohol negative; Lyme negative; head CT negative.; Provided with 1L NSS, lorazepam 2 mg IV x 2, and levetiracetam 1400 mg IV in ED. Please see Dr. Castle attestation for adjustments/additions to treatment plan. Discharge Exam General: No acute distress Skin: Warm and dry, abrasions L side face Head: Normocephalic, atraumatic Eyes: PERRL, conjunctivae clear, sclera non-icteric ENT: External ear and ear canal without swelling; nose atraumatic; good dentition, tongue normal appearance, pharynx normal Neck: Supple, no LAD Cardio: RRR, no M/G/R, S1 and S2 normal Resp: No respiratory distress, Lungs CTA in all lobes bilaterally, no wheezes, rales, or rhonchi Abdomen: Soft, symmetric, nontender; No masses or hepatosplenomegaly; Bowel sounds normoactive MSK: No deformities; pulses palpable and equal; no edema. Neuro: GCS [id number], moves all extremities, no cogwheeling or rigidity, no seizure like movements, PERRL Discharge Plan Discharge Items Patient Disposition: Home - Self-Care Reason For Visit: SEIZURE Discharge Diagnosis: Recurrent Seizure Condition on Discharge: Fair Health Concerns: -Start the Keppra with tonights dose and take twice daily every day -Follow-up with neurology/EMU on 01/27/25 in [place] as scheduled Activity: Per Instructions section Activity Comment: Per prior neurology DC instructions, no driving or operating machinery Lifting: Wait until after follow-up appointment Exercise/Sports: Wait until after follow-up appointment Driving/Machine Use: See Above No Use Until Cleared Non-emergency contact: Primary Care Provider and Neurologist Call non-emergency contact if: you have any medication questions, your symptoms worsen, your pain is not controlled and you have a fever Follow-up/Referrals: Saloni Araiza CRNP [Primary Care Provider] - Diet: Regular Addtl Attending Provider Instructions: Coordinate care and medications with Neurology Pending Studies at Discharge: No Stand-Alone Forms: My [facility] [employer], Smoking Cessation Medications and DC Order Prescriptions: New levetiracetam [Keppra] 250 mg Tablet 750 mg PO BID 30 Days Qty: 180 0RF Discharge Orders: Discharge Order (Routine); Ordered 01/24/25 Ordered By: Joe Walters/Other Patient Handouts: Self-Care for Seizures, Safety During a Seizure, Seizures and Epilepsy Admission Data Admit Date/Time: 01/23/25 03:45 Attending Provider: Joe Suarez Admit Provider: Vinnie Castle Primary Care Provider: Saloni Araiza Other Providers: Vinnie Castle; Luis Shaw Hospital Stay Data Consultations 01/23/25 03:48 ED Decision to Admit Stat 01/23/25 05:35 Consult Neurology Routine Diagnostic Imagining Performed 01/22/25 21:41 CT head/brain wo con Stat 01/23/25 05:35 MRI Brain [MR brain seizure wo/w con] Routine Pending Results Patient Have Any Pending Studies at Discharge: No Discharge Instructions Given to Patient (Per Discharging Provider) Coordinate care and medications with Neurology Total Time Total Time Spent Total Time Spent (In Minutes): 45 minutes spent at the bedside discussing results and modifications to care plan with patient. Arrangements for prescription on discharge. Reviewing new medications, discharge planning and follow-up coordination Coding Level of Care Code 15738 INP/OBS DISCH >30 MIN Diagnoses Seizure R56.9
[2025-01-24 12:15] VITALS: PULSE 72
== END 2025-01-24 13:10 | disposition home or self-care (01) | DRG 101 ==
LOC: ED 21:24 → SUATTDRO 01-23 03:45 → 2S 01-23 03:45